=== PATIENT | male | born 1935 | race Caucasian/White ===

== ENCOUNTER → 2017-12-13 09:01 | Outpatient (CLI) | payer MEDICARE, OTHER ==
[~2017-12-13 09:01] MED LIST: ALDACTONE25 MG PO; CHRONULAC30 ML PO; COUMADIN2.5 MG PO; FUROSEMIDE40 MG PO; HYZAAR 100-25 T1 TAB PO; KLOR-CON M2020 MEQ PO; OMEPRAZOLE20 M1 PO; PROSCAR5 MG PO; ULTRAM50 MG PO; XIFAXAN550 MG PO; ZYLOPRIM300 MG PO
[2017-12-13 10:14] LABS: INR 2.01 (0.85-1.17); PROTIME 22.1 SECONDS (11.6-15.0)
[2017-12-13 10:23] LABS: ALBUMIN 2.5 g/dL (3.4-5.0); ANION GAP 13.7 mmol/L (8-16); BILIRUBIN - TOTAL 1.7 mg/dL (0.2-1.3); CALCIUM 9.2 mg/dL (8.5-10.1); CARBON DIOXIDE 26.3 mmol/L (21.0-32.0); CREATININE - SERUM 2.4 mg/dL (0.6-1.3); PROTEIN - SERUM 6.7 g/dL (6.4-8.2)
[2017-12-14 10:12] LABS: ALPHA FETOPROTEIN -(TUMOR MRK) 2.8 ng/mL (0.0-8.3)
[2017-12-14 12:12] LABS: HEPATITIS C ANTIBODY 0.5 (0.0-0.9)
[2018-01-08 13:55] VITALS: BMI 23.6
== END | disposition home or self-care (01) ==
LOC: D.US 09:01
PROVIDERS: Internal Medicine Gastroenterology
DX: K74.60 Unspecified cirrhosis of liver (principal)

== ENCOUNTER → 2017-12-17 11:27 | Outpatient (CLI) | payer MEDICARE, OTHER ==
[~2017-12-17] VITALS: Ht 175.3 cm; Wt 78.2 kg
--- NOTE | ~2017-12-17 | OP ---
PATIENT NAME: RANGEL NG MEDICAL RECORD: [id number] :36 LOCATION:D.CAT ADMISSION DATE: SURGEON: NOAH TEJADA MD DATE OF OPERATION: 12/17/2017 PROCEDURES: Left heart catheterization, selective coronary angiography, left femoral artery approach. CATHETERS: A 5-Pashto sheath, 5/4 left and right Stacy, 5/4 pig. The procedure was well tolerated. The patient returned to the breaux. Sheath removed. ExoSeal device placed. FINDINGS Left ventriculography in 30-degree GARNETT view shows global hypokinesis. Overall, LV function reduced, 30% to 35%. CORONARY ANATOMY: LEFT MAIN: Left main is free of disease. LAD: Smallish LAD, not quite reaching the apex. This has about 50% stenosis in the mid portion. There is a large diagonal. CIRCUMFLEX: Large circumflex, free of disease. RIGHT CORONARY ARTERY: Dominant artery, gives rise to PDA, free of disease. IMPRESSION: Nonischemic cardiomyopathy. We will start ARB at this point with Hyzaar 100/25 every day. If blood pressure tolerates, I would add carvedilol down the road. No complication of surgery from a cardiovascular standpoint. TRANSINT:[id number] Voice Confirmation ID: [id number] DOCUMENT ID: [id number] NOAH TEJADA MD at 1424 CC: [id number] DICTATION DATE: 12/17/17 140[address] MILK R[address]TE DELIVERER: 12/17/17 1424 DEP CLI 12/17/17 [address] [place] [address]
--- NOTE | ~2017-12-17 | HEMODYNAMI ---
PATIENT:RANGEL NG MEDICAL RECORD: [id number] : 37 LOCATION:DTUAN ADMISSION DATE: 12/17/17 Generatedon:12/17/201713:57 Patient name: RANGEL NG Patient #: [id number] SSN: DO B: 1935 Date of study: 12/17/2017 Page: Of Hemodynamic Procedure Report Patient Data Patient Demographics Procedure consent was obtained First Name: RANGEL Gender: Male Last Name: HERNANDEZ : 1935 [facility] Initial: CHARLES Age: 82 year(s) Patient #: [id number] Race: Unknown Additional ID: [id number] Contact details [address]: [address] [place] [address] ROAD State: [place] City: [place] Zip code: [address] Past Medical History Allergies: No known allergies Admission Admission Data Admission Date: 12/17/2017 Admission Time: 11:27 Lab Results Lab Result Date: 12/17/2017 Lab Result Time: 0:00 CBC Name Units Result Min Max Hemoglobin g/dl 10.3 *-(----)-- 13.5 17.5 Coagulation Name Units Result Min Max INR units 1.24 --(----)*- 0.85 1.17 Procedure Procedure Types Cath Procedure Diagnostic Procedure LHC LH w/Coronaries Procedure Description Procedure Date Procedure Date: 12/17/2017 Procedure Start Time: 13:44 Procedure End Time: 13:56 Procedure Staff Name Function Leon Miles MD Performing Physician Rafi Fernandez RT Monitor Anatoly Wilcox RN Nurse Amanda Rocha RT Scrub Procedure Data Cath Procedure Fluoroscopy Diagnostic fluoroscopy Total fluoroscopy Time: 1.5 time: 1.5 min min Diagnostic fluoroscopy Total fluoroscopy dose: dose: 341.02 mGy 341.02 mGy Contrast Material Contrast Material Type Amount (ml) Isovue 300 50 Entry Location Entry Primary Successful Side Size Upsize Upsize Entry Closure Succes sful Closure Location (Fr) 1 (Fr) 2 (Fr) Remarks Device Remarks Femoral Right 5 Fr Exoseal artery Estimated blood loss: 5 ml Diagnostic catheters Device Type Used For End Catheter Placement MULTIPACK JL 4.0 5Fr Procedure catheter MULTIPACK 3DRC 5Fr Procedure catheter MULTIPACK Pigtail 5 Fr Procedure catheter Procedure Complications No complications Procedure Medications Medication Administration Route Dosage 0.9% NaCl I.V. 100 ml/hr Oxygen etCO2 Nasal cannula 2 l/min Heparin Flush Bag added to field 2 bags (1000units/500ml NS) Lidocaine 2% added to field 20 Benadryl I.V. 50 mg Versed I.V. 1 mg Fentanyl I.V. 50 mcg Hemodynamics Rest HGB: 10.3 (g/dl) Heart Rate: 57 (bpm) Pressure Samples Time Site Value (mmHg) Purpose Heart Use Rate(bpm) 13:50 LV 130/-5,11 Snapshot 70 13:51 AO 116/56(82) Pullback 69 13:51 LV 115/10,15 Pullback 69 Gradients Valve Time Site 1 Site 2 Mean SEP/DFP Peak To Heart Use (mmHg) (sec/min) Peak Rate (mmHg) (bpm) Aortic 13:51 LV AO 0 8 0 69 115/10,15 116/56(82) Calculations Valve P-P Mean Valve Index Valve Source Name Gradient Area Flow (cm2) Aortic 0 0 0 0 Snapshots Pre Cath Intra NCS Post Cath Vital Signs Time Heart Resp SPO2 etCO2 NIBP (mmHg) Rhythm Pain Sedation Rate (ipm) (%) (mmHg) Status Level (bpm) 13:05:17 59 16 100 32.2 140/71(110) NSR 0 (11) 10(A) , No pain 13:09:56 62 25 100 32.2 128/72(105) NSR 0 (11) 10(A) , No pain 13:14:30 66 14 100 29.9 117/73(100) NSR 0 (11) 10(A) , No pain 13:19:05 67 13 100 24.7 108/62(87) NSR 0 (11) 10(A) , No pain 13:23:35 62 13 100 29.2 117/66(101) NSR 0 (11) 10(A) , No pain 13:28:08 70 24 100 29.9 115/72(93) NSR 0 (11) 10(A) , No pain 13:32:40 65 14 100 30.6 115/72(95) NSR 0 (11) 10(A) , No pain 13:37:13 59 17 100 30.6 118/66(90) NSR 0 (11) 10(A) , No pain 13:41:45 65 29 100 30.6 128/72(104) NSR 0 (11) 9(A) , No pain 13:46:20 64 13 100 30.6 127/71(102) NSR 0 (11) 9(A) , No pain 13:50:54 68 13 100 32.1 120/71(106) NSR 0 (11) 9(A) , No pain 13:55:28 65 12 100 31.4 121/72(101) NSR 0 (11) 9(A) , No pain Medications Time Medication Route Dose Verified Delivered Reason Notes Eff ectiveness by by 13:09:40 0.9% NaCl I.V. 100 Anatoly Anatoly Per ml/hr Brenden Wilcox physician RN RN 13:09:50 Oxygen etCO2 2 Anatoly Anatoly Per Nasal l/min Brenden Wilcox physician cannula RN RN 13:10:00 Heparin Flush added 2 Anatoly Anatoly used for Bag to bags Lorigan Brenden procedure (1000units/500ml field RN RN NS) 13:10:10 Lidocaine 2% added 20ml Anatoly Anatoly for local to vial Lorigan Lorigan anesthetic field RN RN 13:10:20 Benadryl I.V. 50 mg Anatoly Anatoly Per Brenden Wilcox physician RN RN 13:41:11 Versed I.V. 1 mg Anatoly Anatoly for Lorigan Lorigan sedation RN RN 13:41:20 Fentanyl I.V. 50 Anatoly Anatoly for mcg Lorigan Lorigan sedation RN asset protection manager Log Time Note 12:40:53 Anatoly Wilcox RN sent for patient. Start room use. 12:51:59 Time tracking: Regular hours (M-F 7:00 - 5:00) 12:52:04 Plan of Care:Hemodynamics will remain stable., Cardiac rhythm will remain stable., Comfort level will be maintained., Respiratory function will remain adequate., Patient/ family verbilizes understanding of procedure., Procedure tolerated without complication., Recovers from procedure without complications.. 12:52:06 Signed procedure consent form obtained from patient. 12:52:17 H&P Date Dictated: 12/10/2017 Within 30 days and on chart., H&P Addendum completed by physician on day of procedure. (MUST COMPLETE FOR ALL OUTPATIENTS). 12:52:26 Patient received from Pre/Post Procedure Room to CCL 1 Alert and oriented. Tansferred to table in Supine position. 12:52:27 Warm blankets applied, and eliza hugger turned on for patient comfort. 12:52:27 Correct patient and procedure confirmed by team. 12:52:28 ECG and BP/O2 sat monitors applied to patient. 12:53:38 Lab Result : Hemoglobin 10.3 g/dl 12:53:38 Lab Result : INR 1.24 units 12:53:48 Patient allergic to No known allergies 13:04:23 Vital chart was started 13:04:24 Baseline sample Acquired. 13:05:38 Rhythm: sinus rhythm 13:05:40 Full Disclosure recording started 13:05:41 Pre-procedure instructions explained to patient. 13:05:45 Family in waiting room. 13:05:47 Patient NPO since Midnight. 13:05:49 Is the patient allergic to Iodine/contrast media? No. 13:05:50 Is patient on blood thinner?Yes 13:05:52 Patient diabetic? No. 13:05:55 Previous problem with sedation/anesthesia? No ? 13:05:57 Snore? Yes 13:05:59 Sleep apnea? No 13:05:59 Deviated septum? Yes 13:06:00 Opens mouth fully? Yes 13:06:01 Sticks out tongue? Yes 13:06:02 Airway obstruction? No ? 13:06:07 Dentures? Yes in tight 13:06:12 Pre procedure: left dorsailis pedis pulse 1+ Palpable, but thready & weak; easily obliterated 13:06:14 Patient pain scale 0/10 ?. 13:06:26 IV patent on arrival in left antecubital with 0.9% NaCl at [facility]. 13:06:29 Lab results completed and on chart. 13:06:33 Left groin area was prepped with chlora-prep and draped in sterile fashion 13:06:35 Alarms reviewed by R. N. 13:06:35 Sharps counted by scrub and verified by R.N. 13:06:37 Use device set Femoral Dx 13:06:38 ACIST Syringe (56400) opened to sterile field. 13:06:39 Bag Decanter (2002S) opened to sterile field. 13:06:40 ACIST Hand Control (06961) opened to sterile field. 13:06:41 ACIST Manifold (24419) opened to sterile field. 13:06:42 Tegaderm 4 x 4 (1626W) opened to sterile field. 13:06:46 Medline Cath Pack ([id number]) opened to sterile field. 13:06:54 SHEATH Prelude 5Fr 0.035 (CCU-2A-03-035) opened to sterile field. 13:06:56 DIAGNOSTIC Multipack 5Fr catheter set ([id number]) opened to sterile field. 13:06:57 DIAGNOSTIC WIRE .035 260cm J wire (382031) opened to sterile field. 13:09:40 0.9% NaCl 100 ml/hr I.V. was administered by Anatoly Wilcox RN; Per physician; 13:09:50 Oxygen 2 l/min etCO2 Nasal cannula was administered by Anatoly Wilcox RN; Per physician; 13:10:00 Heparin Flush Bag (1000units/500ml NS) 2 bags added to field was administered by Anatoly Wilcox RN; used for procedure; 13:10:10 Lidocaine 2% 20ml vial added to field was administered by Anatoly Wilcox RN; for local anesthetic; 13:10:20 Benadryl 50 mg I.V. was administered by Anatoly Wilcox RN; Per physician; 13:15:53 Zero performed for pressure channel P1 13:40:39 Physician arrived 13:40:40 --------ALL STOP TIME OUT------ 13:40:40 Final Timeout: patient, procedure, and site verified with staff and physician. All members of the team are in agreement. 13:40:42 Right groin site verified by team. 13:40:44 Physical assessment completed. ASA score P 2 - A patient with mild systemic disease as per Leon Miles MD. 13:40:46 Sedation plan: IV Moderate Sedation Medication:Versed, Fentanyl 13:41:11 Versed 1 mg I.V. was administered by Anatoly Wilcox RN; for sedation; 13:41:20 Fentanyl 50 mcg I.V. was administered by Anatoly Wilcox RN; for sedation; 13:44:43 Procedure started. 13:44:46 Local anesthetic to right femoral artery with Lidocaine 2% by Leon Miles MD.INITIAL ACCESS ONLY 13:44:53 A 5 Fr sheath was inserted into the Right Femoral artery 13:45:51 A MULTIPACK JL 4.0 5Fr catheter was advanced over the wire and used for Procedure. 13:47:01 LCA angiography performed. 13:48:00 Catheter exchanged over wire. 13:48:43 A MULTIPACK 3DRC 5Fr catheter was advanced over the wire and used for Procedure. 13:49:17 RCA angiography performed. 13:49:18 Catheter exchanged over wire. 13:49:24 A MULTIPACK Pigtail 5 Fr catheter was advanced over the wire and used for Procedure. 13:50:27 LV gram done using GARNETT 13:50:29 Injector settings: Ml/sec: 10, Volume: 20, 13:50:31 LV hemodynamics recorded. 13:50:54 EF : 35 % 13:52:49 Catheter removed. 13:52:53 EXOSEAL 5Fr (EX500) opened to sterile field. 13:53:28 Sheath removed intact; hemostasis achieved with Exoseal to the Right Femoral artery. 13:53:30 Procedure ended.(Physican Out) 13:55:00 Fluoroscopy time 01.50 minutes. 13:55:07 Fluoroscopy dose: 341.02 mGy 13:55:07 Flurop Dose total: 341.02 13:55:28 Contrast amount:Isovue 300 50ml. 13:55:29 Sharps counted by scrub and verified by R.N. 13:55:34 Insertion/operative site no bleeding no hematoma. 13:55:37 Post-op/insertion site Left Femoral artery dressed using a 4 x 4 and Tegaderm. 13:55:41 Post left femerol artery:stable, soft, clean and dry 13:55:43 Post Procedure Pulses reassessed and unchanged 13:55:46 Post-procedure physical assessment completed. ASA score P 2 - A patient with mild systemic disease as per Leon Miles MD. 13:55:48 Post procedure rhythm: unchanged. 13:55:52 Estimated blood loss: 5 ml 13:55:53 Post procedure instruction explained to patient.Patient verbalizes understanding. 13:55:54 Patient needs reinforcement of post procedure teaching. 13:56:39 Procedure and supply charges have been captured, reviewed, submitted and are correct. 13:56:41 Procedure Complication : No complications 13:56:43 Vital chart was stopped 13:56:43 See physician's report for complete and final results. 13:56:45 Report given to Pre/Post Procedure Room. 13:56:48 Patient transfered to Pre/Post Procedure Room with Stretcher. 13:56:51 Procedure ended. 13:56:51 Full Disclosure recording stopped 13:56:54 End room use (Document Last) Device Usage Item Name Manufacture Quantity Catalog Number Hospital Part Current M inimal Lot# / Charge Number Stock Stock Serial# Code ACIST Syringe Acist 1 08360 [id number] 246765 870193 2 0 (93369) Medical Systems Snaapiq Bag Decanter Microtek 1 2001S 873586 81696 198530 5 (2001S) Medical Inc. ACIST Hand Acist 1 83826 271999 267088 712522 5 Control (54235) Medical Systems Snaapiq ACIST Manifold Acist 1 46959 444299 801231 903398 5 (27113) Medical Systems Snaapiq Tegaderm 4 x 4 3M 1 1626W 810092 355373 303507 5 (1626W) Medline Cath Cardinal 1 [id number] 713682 87543 733788 5 Pack Health ([id number]) SHEATH Prelude Merit 1 HAM-2O-62-035 334054 394189 681257 5 5Fr 0.035 Medical (KSD-7J-46-035) DIAGNOSTIC Cardinal 1 HW8699 135932 73026 183221 3 0 Multipack 5Fr Health catheter set (FU5710) DIAGNOSTIC WIRE [facility] 1 096904 459210 656737 752127 3 0 .035 260cm J wire (689002) MULTIPACK JL Cardinal 1 354677 5 4.0 5Fr Health catheter MULTIPACK 3DRC Cardinal 1 439401 5 5Fr catheter Health MULTIPACK Cardinal 1 049327 5 Pigtail 5 Fr Health catheter EXOSEAL 5Fr Cardinal 1 EX500 150300 097636 634338 1 0 (EX500) Health Signature Audit [place] Stage Time Signature Unsigned Intra-Procedure 12/17/2017 Rafi Fernandez 1:57:29 PM RT(R) Signatures Monitor : Rafi Fernandez RT Signature : Date : Time : [address] [place] [address]
[2017-12-17 12:02] VITALS: BP 152/72; Ht 175.3 cm; Wt 78.2 kg
[2017-12-17 12:11] LABS: BASOPHILS 0 % (0-2); EOSINOPHILS 0.9 % (0-7); HEMATOCRIT 30.8 % (42.0-54.0); HEMOGLOBIN 10.3 g/dL (13.5-17.5); IMMATURE GRANULOCYTES 0.3 % (0-5); LYMPHOCYTES 20.2 % (15-50); MCH 35.9 pg (26.0-34.0); MCHC 33.4 g/dL (31.0-37.0); MCV 107.3 fL (80.0-100.0); MEAN PLATELET VOLUME 12.4 fL (7.4-10.4); MONOCYTES 9.9 % (2-11); NEUTROPHILS 68.7 % (40-80); PLATELET COUNT 85 10x3/uL (130-400); RBC 2.87 10x6/uL (4.20-6.10); RDW 15.2 % (11.5-14.5); WBC 6.7 10x3/uL (4.8-10.8)
[2017-12-17 12:21] LABS: INR 1.24 (0.85-1.17); PROTIME 15.2 SECONDS (11.6-15.0)
[2017-12-17 12:38] LABS: PLATELET ESTIMATE DECREASED
[2017-12-17 12:51] LABS: ANION GAP 12.7 mmol/L (8-16); CALCIUM 8.4 mg/dL (8.5-10.1); CARBON DIOXIDE 27.2 mmol/L (21.0-32.0); CREATININE - SERUM 2.4 mg/dL (0.6-1.3); POTASSIUM - SERUM 3.9 mmol/L (3.5-5.1)
== END | disposition home or self-care (01) ==
LOC: D.CATH 11:27
PROVIDERS: Internal Medicine Interventional Cardiology
DX: I42.8 Other cardiomyopathies (principal); Z01.812 Encounter for preprocedural laboratory examination

== ENCOUNTER → 2017-12-24 08:08 | Outpatient (CLI) | payer MEDICARE, OTHER ==
[2017-12-17 12:02] VITALS: BMI 25.4
== END | disposition home or self-care (01) ==
LOC: D.MRI 08:08
DX: K74.60 Unspecified cirrhosis of liver (principal)

== ENCOUNTER 2017-12-28 12:38 | Inpatient (IN) | payer MEDICARE, OTHER ==
[~2017-12-28] VITALS: Ht 175.3 cm; Wt 44.1 kg
--- NOTE | ~2017-12-28 | EC ---
PATIENT:RANGEL NG DATE OF SERVICE: 12/28/17 SEX: M MEDICAL RECORD: [id number] DATE OF : 37 LOCATION:D.M2 D.213 AGE OF PATIENT: 82 ADMISSION DATE: 12/28/17 REFERRING PHYSICIAN: INTERPRETING PHYSICIAN: LUIS VALDEZ MD ECHOCARDIOGRAM REPORT ECHO CHARGES 4 ECHO COMPLETE Date: 12/29 CLINICAL DIAGNOSIS: SYNCOPE ECHOCARDIOGRAPHIC MEASUREMENTS (adult normal given) AC root (d.<3.7cm) 3.9 cm LV Septum d (<1.2 cm> 1.4 cm Valve Excursion 1.3 cm LV Septum (systole) 1.7 cm Left Atria (s.<4.0cm> 3.7 cm LVPW d(<1.2cm) 1.5 cm RV (d.<2.3cm) 3.9 cm LVPW (sytole) 2.0 cm LV diastole(<5.6CM) 4.7 cm MV E-F(>70mm/sec) cm LV systole 3.2 cm LVOT Diameter 1.5 cm MV exc.(>10mm) 1.7 cm Est.ejection fraction (50-75%) % DOPPLER: LVIT cm/sec A 93.0 cm/sec E 43.0 cm/sec LA cm/sec RVSP 34 mmHg LVOT 126 cm/sec AOP1/2T m/s Asc. Ao 193 cm/sec RVOT cm/sec RA cm/sec PA cm/sec AV Gradient Peak 14.91mmHg AV Mean 7.51 mmHg AV Area 1.2 cm MV Gradient Peak 4.74 mmHg MV Mean 1.57 mmHg MV Area cm COMMENTS: Ux Architect: 2 JOHNY ALEXANDER Manager Housekeeping: 4 Dr. Valdez TAPE# PACS Pericardial Effusion N DATE OF SERVICE: PROCEDURE: Transthoracic echocardiogram. FINDINGS: 1. Left ventricular function is low normal. There is a septal bounce and dyssynchronous wall motion or asynchronous wall motion due to underlying bundle-branch block, but the overall function is normal. Inflow characteristics consistent with diastolic dysfunction. The patient appears to have moderate left ventricular hypertrophy. ECHOCARDIOGRAM REPORT [id number] RANGEL NG 2. The left atrium has normal size, shape, and function. 3. The aortic valve is grossly normal with trace aortic insufficiency and mild sclerosis. 4. The mitral valve is normal. 5. Tricuspid valve is normal with an RVSP of 34 mmHg. 6. The right ventricle and right atrium are mildly dilated. 7. Pericardium is normal. CONCLUSIONS: The patient has evidence of mild aortic sclerosis without stenosis and dyssynchronous wall motion with left ventricular hypertrophy and diastolic dysfunction. TRANSINT:[id number] Voice Confirmation ID: [id number] DOCUMENT ID: [id number] LUIS VALDEZ MD at 1029 CC: [id number] DICTATION DATE: 01/02/18 0756 IDENTITY MANAGEMENT DEVELOPER: 01/02/18 0930 DIS IN 01/03/18 [facility] [address] [place] [address]
[~2017-12-28 12:38] MED LIST changes: -ALDACTONE25 MG PO; -CHRONULAC30 ML PO
[2017-12-28 15:31] VITALS: BP 122/60; BMI 24.4
[2017-12-28 17:02] VITALS: BP 117/73
[2017-12-28 20:50] VITALS: BP 118/72
[2017-12-29] VITALS (7 sets, daily range): BP systolic 93–133; BP diastolic 66–77
[2017-12-29 11:05] LABS: HEMOGLOBIN 11.9 g/dL (13.5-17.5); MCH 36.1 pg (26.0-34.0); MCV 106.1 fL (80.0-100.0); MEAN PLATELET VOLUME 12.1 fL (7.4-10.4); RDW 14.8 % (11.5-14.5)
[2017-12-29 11:24] LABS: ALBUMIN 2.4 g/dL (3.4-5.0); ANION GAP 11.5 mmol/L (8-16); BILIRUBIN - TOTAL 1.95 mg/dL (0.2-1.3); CALCIUM 8.7 mg/dL (8.5-10.1); CARBON DIOXIDE 28.4 mmol/L (21.0-32.0); CREATININE - SERUM 3.4 mg/dL (0.6-1.3); MAGNESIUM - SERUM 1.9 mg/dL (1.8-2.4); POTASSIUM - SERUM 3.9 mmol/L (3.5-5.1); PROTEIN - SERUM 6.3 g/dL (6.4-8.2)
[2017-12-29 11:26] LABS: PLATELET COUNT 61 10x3/uL (130-400)
[2017-12-29 11:29] LABS: APTT 35.3 SECONDS (22.8-39.4); INR 1.84 (0.85-1.17); PROTIME 20.7 SECONDS (11.6-15.0)
[2017-12-29 14:04] LABS: CKMB 1.9 U/L (0.0-3.6); CREATINE KINASE 129 UL (21-232)
[2017-12-29 14:07] LABS: TROPONIN-I 0.084 ng/mL (0.000-0.060)
[2017-12-29 18:43] LABS: CREATINE KINASE 137 UL (21-232)
[2017-12-29 18:51] LABS: TROPONIN-I 0.075 ng/mL (0.000-0.060)
[2017-12-30 00:38] LABS: CKMB 1.8 U/L (0.0-3.6); CREATINE KINASE 115 UL (21-232)
[2017-12-30 00:40] LABS: TROPONIN-I 0.068 ng/mL (0.000-0.060)
[2017-12-30 02:28] VITALS: BP 115/76
[2017-12-30 05:22] VITALS: BP 115/73
[2017-12-30 07:15] LABS: BASOPHILS 0.2 % (0-2); EOSINOPHILS 2.2 % (0-7); HEMATOCRIT 32.1 % (42.0-54.0); HEMOGLOBIN 10.8 g/dL (13.5-17.5); IMMATURE GRANULOCYTES 0.2 % (0-5); MCH 35.4 pg (26.0-34.0); MCHC 33.6 g/dL (31.0-37.0); MCV 105.2 fL (80.0-100.0); MEAN PLATELET VOLUME 12.6 fL (7.4-10.4); MONOCYTES 8.7 % (2-11); NEUTROPHILS 67.7 % (40-80); PLATELET COUNT 53 10x3/uL (130-400); RBC 3.05 10x6/uL (4.20-6.10); RDW 14.5 % (11.5-14.5); WBC 5.4 10x3/uL (4.8-10.8)
[2017-12-30 07:18] LABS: INR 2.02 (0.85-1.17); PROTIME 22.2 SECONDS (11.6-15.0)
[2017-12-30 07:32] LABS: ALBUMIN 2.1 g/dL (3.4-5.0); ANION GAP 12.7 mmol/L (8-16); BILIRUBIN - TOTAL 2.09 mg/dL (0.2-1.3); CALCIUM 8.5 mg/dL (8.5-10.1); POTASSIUM - SERUM 3.7 mmol/L (3.5-5.1); PROTEIN - SERUM 5.6 g/dL (6.4-8.2)
[2017-12-30 08:20] VITALS: BP 119/69
[2017-12-30 11:24] VITALS: BP 105/71
[2017-12-30 13:57] VITALS: Ht 175.3 cm; Wt 44.1 kg
[2017-12-30 16:10] VITALS: BP 123/64
[2017-12-30 20:24] VITALS: BP 95/63
[2017-12-31] VITALS (7 sets, daily range): BP systolic 92–150; BP diastolic 54–74
[2017-12-31 06:54] LABS: BASOPHILS 0.1 % (0-2); EOSINOPHILS 1.2 % (0-7); HEMATOCRIT 37.4 % (42.0-54.0); HEMOGLOBIN 12.8 g/dL (13.5-17.5); IMMATURE GRANULOCYTES 0.2 % (0-5); LYMPHOCYTES 22.3 % (15-50); MCH 36.3 pg (26.0-34.0); MCHC 34.2 g/dL (31.0-37.0); MCV 105.9 fL (80.0-100.0); MEAN PLATELET VOLUME 12.8 fL (7.4-10.4); MONOCYTES 8.1 % (2-11); NEUTROPHILS 68.1 % (40-80); RBC 3.53 10x6/uL (4.20-6.10); RDW 14.7 % (11.5-14.5)
[2017-12-31 07:13] LABS: INR 1.73 (0.85-1.17); PROTIME 19.7 SECONDS (11.6-15.0)
[2017-12-31 07:15] LABS: ALBUMIN 2.5 g/dL (3.4-5.0); ANION GAP 17.9 mmol/L (8-16); BILIRUBIN - TOTAL 2.4 mg/dL (0.2-1.3); CALCIUM 8.6 mg/dL (8.5-10.1); CARBON DIOXIDE 26.8 mmol/L (21.0-32.0); CREATININE - SERUM 3.3 mg/dL (0.6-1.3); POTASSIUM - SERUM 3.7 mmol/L (3.5-5.1); PROTEIN - SERUM 6.1 g/dL (6.4-8.2)
[2017-12-31 07:43] LABS: PLATELET COUNT 65 10x3/uL (130-400); WBC 9.2 10x3/uL (4.8-10.8)
[2017-12-31 15:49] LABS: APPEARANCE CLEAR (CLEAR); BILIRUBIN NEGATIVE (NEGATIVE); COLOR YELLOW (YELLOW); GLUCOSE NEGATIVE (NEGATIVE); KETONE NEGATIVE (NEGATIVE); NITRITE NEGATIVE (NEGATIVE); PROTEIN NEGATIVE (NEGATIVE); SPECIFIC GRAVITY 1.015 (1.005-1.020); UROBILINOGEN NORMAL (NORMAL)
[2017-12-31 15:50] LABS: BACTERIA MANY /hpf (NONE SEEN); RED CELLS - URINE 0-5 /hpf (0-5)
[2018-01-01] VITALS: BP 91/64
[2018-01-01 06:13] LABS: BASOPHILS 0.1 % (0-2); EOSINOPHILS 1.8 % (0-7); HEMATOCRIT 36.9 % (42.0-54.0); HEMOGLOBIN 12.7 g/dL (13.5-17.5); IMMATURE GRANULOCYTES 0.2 % (0-5); LYMPHOCYTES 23.6 % (15-50); MCH 36.1 pg (26.0-34.0); MCHC 34.4 g/dL (31.0-37.0); MCV 104.8 fL (80.0-100.0); MEAN PLATELET VOLUME 12.7 fL (7.4-10.4); MONOCYTES 8.1 % (2-11); NEUTROPHILS 66.2 % (40-80); PLATELET COUNT 74 10x3/uL (130-400); RBC 3.52 10x6/uL (4.20-6.10); RDW 14.6 % (11.5-14.5); WBC 8.9 10x3/uL (4.8-10.8)
[2018-01-01 06:25] LABS: INR 1.53 (0.85-1.17); PROTIME 17.9 SECONDS (11.6-15.0)
[2018-01-01 06:41] LABS: ALBUMIN 2.5 g/dL (3.4-5.0); ANION GAP 15.5 mmol/L (8-16); BILIRUBIN - TOTAL 2.48 mg/dL (0.2-1.3); CALCIUM 8.7 mg/dL (8.5-10.1); CARBON DIOXIDE 25.8 mmol/L (21.0-32.0); POTASSIUM - SERUM 3.3 mmol/L (3.5-5.1); PROTEIN - SERUM 6.5 g/dL (6.4-8.2)
[2018-01-01 08:22] VITALS: BP 108/68
[2018-01-01 12:09] VITALS: BP 100/65
[2018-01-01 16:16] VITALS: BP 101/82
[2018-01-01 22:01] VITALS: BP 106/71
[2018-01-02 01:03] VITALS: BP 123/74
[2018-01-02 06:37] LABS: BASOPHILS 0 % (0-2); EOSINOPHILS 2.2 % (0-7); HEMATOCRIT 34.4 % (42.0-54.0); HEMOGLOBIN 11.7 g/dL (13.5-17.5); IMMATURE GRANULOCYTES 0.3 % (0-5); LYMPHOCYTES 20.1 % (15-50); MCH 35.6 pg (26.0-34.0); MCV 104.6 fL (80.0-100.0); MEAN PLATELET VOLUME 11.7 fL (7.4-10.4); MONOCYTES 8.9 % (2-11); NEUTROPHILS 68.5 % (40-80); PLATELET COUNT 60 10x3/uL (130-400); RBC 3.29 10x6/uL (4.20-6.10); RDW 14.5 % (11.5-14.5)
[2018-01-02 06:40] LABS: WBC 5.9 10x3/uL (4.8-10.8)
[2018-01-02 06:54] LABS: INR 1.77 (0.85-1.17); PROTIME 20.1 SECONDS (11.6-15.0)
[2018-01-02 07:00] VITALS: BP 125/78
[2018-01-02 07:17] LABS: ALBUMIN 2.1 g/dL (3.4-5.0); ANION GAP 15.7 mmol/L (8-16); BILIRUBIN - TOTAL 1.49 mg/dL (0.2-1.3); CALCIUM 8.5 mg/dL (8.5-10.1); CARBON DIOXIDE 25.9 mmol/L (21.0-32.0); CREATININE - SERUM 2.9 mg/dL (0.6-1.3); POTASSIUM - SERUM 3.6 mmol/L (3.5-5.1); PROTEIN - SERUM 5.3 g/dL (6.4-8.2)
[2018-01-02 13:03] VITALS: BP 103/70
[2018-01-02 16:39] VITALS: BP 122/68
[2018-01-02 20:00] VITALS: BP 107/71
[2018-01-03] VITALS: BP 155/68
[2018-01-03 04:00] VITALS: BP 132/75
[2018-01-03 05:10] LABS: INR 1.84 (0.85-1.17); PROTIME 20.7 SECONDS (11.6-15.0)
[2018-01-03 05:27] LABS: ALBUMIN 2.2 g/dL (3.4-5.0); BILIRUBIN - TOTAL 1.4 mg/dL (0.2-1.3); CALCIUM 8.6 mg/dL (8.5-10.1); CARBON DIOXIDE 25.8 mmol/L (21.0-32.0); CREATININE - SERUM 2.6 mg/dL (0.6-1.3); POTASSIUM - SERUM 3.8 mmol/L (3.5-5.1); PROTEIN - SERUM 5.7 g/dL (6.4-8.2)
[2018-01-03 05:38] LABS: BASOPHILS 0.1 % (0-2); EOSINOPHILS 1.8 % (0-7); HEMATOCRIT 34.3 % (42.0-54.0); HEMOGLOBIN 11.6 g/dL (13.5-17.5); IMMATURE GRANULOCYTES 0.4 % (0-5); LYMPHOCYTES 22.5 % (15-50); MCH 35.2 pg (26.0-34.0); MCHC 33.8 g/dL (31.0-37.0); MCV 103.9 fL (80.0-100.0); MEAN PLATELET VOLUME 11.6 fL (7.4-10.4); MONOCYTES 9.2 % (2-11); PLATELET COUNT 64 10x3/uL (130-400); RDW 14.3 % (11.5-14.5); WBC 7.3 10x3/uL (4.8-10.8)
[2018-01-03 09:01] VITALS: BP 121/70
[2018-01-03 12:17] VITALS: BP 113/72
[2018-01-03] MEDS ORDERED: ALDACTONE25 MG PO (12:43)
[2018-01-03] MEDS ORDERED: CHRONULAC30 ML PO (12:44)
[2018-01-03 15:17] VITALS: BP 112/83
== END 2018-01-03 16:58 | disposition home or self-care (01) | DRG 314 ==
LOC: D.M2 12:38
PROVIDERS: Internal Medicine Cardiovascular Disease; Internal Medicine Nephrology
DX: I95.9 Hypotension, unspecified (principal); I50.33 Acute on chronic diastolic (congestive) heart failure; N17.9 Acute kidney failure, unspecified; E86.9 Volume depletion, unspecified; K74.60 Unspecified cirrhosis of liver; I12.9 Hypertensive chronic kidney disease with stage 1 through stage 4 chronic kidney disease, or unspecified chronic kidney disease; N18.9 Chronic kidney disease, unspecified; D64.9 Anemia, unspecified; D69.6 Thrombocytopenia, unspecified; Z85.72 Personal history of non-Hodgkin lymphomas; K72.90 Hepatic failure, unspecified without coma; E86.1 Hypovolemia

== ENCOUNTER 2018-01-07 08:29 | Inpatient (IN) | payer MEDICARE, OTHER ==
[~2018-01-07] VITALS: Ht 175.3 cm; Wt 72.6 kg
[2018-01-07] VITALS (10 sets, daily range): BP systolic 109–132; BP diastolic 63–79; BMI 23.6
[~2018-01-07 08:29] MED LIST changes: +ALDACTONE25 MG PO; +CHRONULAC30 ML PO
[2018-01-07 09:22] LABS: BASOPHILS 0.3 % (0-2); EOSINOPHILS 1.3 % (0-7); HEMATOCRIT 34.5 % (42.0-54.0); HEMOGLOBIN 11.9 g/dL (13.5-17.5); IMMATURE GRANULOCYTES 0.9 % (0-5); LYMPHOCYTES 23.9 % (15-50); MCH 36.2 pg (26.0-34.0); MCHC 34.5 g/dL (31.0-37.0); MCV 104.9 fL (80.0-100.0); MEAN PLATELET VOLUME 12.1 fL (7.4-10.4); MONOCYTES 11.2 % (2-11); NEUTROPHILS 62.4 % (40-80); PLATELET COUNT 64 10x3/uL (130-400); RBC 3.29 10x6/uL (4.20-6.10)
[2018-01-07 09:38] LABS: ALBUMIN 2.2 g/dL (3.4-5.0); ANION GAP 13.6 mmol/L (8-16); BILIRUBIN - DIRECT 0.54 mg/dL (0.00-0.30); BILIRUBIN - INDIRECT 0.74 mg/dL (0.00-1.00); BILIRUBIN - TOTAL 1.28 mg/dL (0.2-1.3); CALCIUM 8.7 mg/dL (8.5-10.1); CARBON DIOXIDE 25.1 mmol/L (21.0-32.0); CREATININE - SERUM 3.1 mg/dL (0.6-1.3); POTASSIUM - SERUM 4.7 mmol/L (3.5-5.1); PROTEIN - SERUM 5.8 g/dL (6.4-8.2)
[2018-01-07 10:30] LABS: APPEARANCE HAZY (CLEAR); BACTERIA FEW /hpf (NONE SEEN); BILIRUBIN NEGATIVE (NEGATIVE); COLOR YELLOW (YELLOW); EPITHELIAL CELLS 0-5 /hpf (0-5); GLUCOSE NEGATIVE (NEGATIVE); KETONE NEGATIVE (NEGATIVE); NITRITE NEGATIVE (NEGATIVE); PROTEIN NEGATIVE (NEGATIVE); RED CELLS - URINE 0-5 /hpf (0-5); UROBILINOGEN NORMAL (NORMAL)
[2018-01-07 15:00] LABS: INR 3.51 (0.85-1.17); PROTIME 34.4 SECONDS (11.6-15.0)
[2018-01-08] VITALS (7 sets, daily range): BP systolic 104–130; BP diastolic 61–81; Ht 175.3 cm; Wt 72.6 kg
[2018-01-08 05:38] LABS: BASOPHILS 0.2 % (0-2); EOSINOPHILS 1.8 % (0-7); HEMATOCRIT 35.8 % (42.0-54.0); HEMOGLOBIN 11.9 g/dL (13.5-17.5); IMMATURE GRANULOCYTES 0.5 % (0-5); MCH 35.1 pg (26.0-34.0); MCHC 33.2 g/dL (31.0-37.0); MCV 105.6 fL (80.0-100.0); MONOCYTES 8.1 % (2-11); NEUTROPHILS 69.4 % (40-80); PLATELET COUNT 58 10x3/uL (130-400); RBC 3.39 10x6/uL (4.20-6.10); RDW 15.4 % (11.5-14.5); WBC 6.2 10x3/uL (4.8-10.8)
[2018-01-08 05:57] LABS: INR 3.79 (0.85-1.17); PROTIME 36.5 SECONDS (11.6-15.0)
[2018-01-08 06:06] LABS: ALBUMIN 2.2 g/dL (3.4-5.0); ANION GAP 16.7 mmol/L (8-16); BILIRUBIN - TOTAL 1.4 mg/dL (0.2-1.3); CALCIUM 8.5 mg/dL (8.5-10.1); CARBON DIOXIDE 20.5 mmol/L (21.0-32.0); CREATININE - SERUM 2.9 mg/dL (0.6-1.3); POTASSIUM - SERUM 4.2 mmol/L (3.5-5.1); PROTEIN - SERUM 5.6 g/dL (6.4-8.2)
[2018-01-09 04:23] VITALS: BP 121/71
[2018-01-09 07:33] LABS: CALCIUM 8.5 mg/dL (8.5-10.1); POTASSIUM - SERUM 3.8 mmol/L (3.5-5.1)
[2018-01-09 07:46] LABS: ANION GAP 17.8 mmol/L (8-16)
[2018-01-09 08:20] VITALS: BP 132/78
[2018-01-09 11:40] VITALS: BP 120/66
[2018-01-09 15:52] VITALS: BP 113/70
[2018-01-09 21:20] VITALS: BP 139/59
[2018-01-10 00:38] VITALS: BP 111/75
[2018-01-10 05:04] VITALS: BP 148/43
[2018-01-10 05:24] LABS: ANION GAP 16.4 mmol/L (8-16); CALCIUM 8.2 mg/dL (8.5-10.1); CARBON DIOXIDE 16.5 mmol/L (21.0-32.0); CREATININE - SERUM 2.7 mg/dL (0.6-1.3); POTASSIUM - SERUM 3.9 mmol/L (3.5-5.1)
[2018-01-10 05:33] LABS: INR 5.59 (0.85-1.17); PROTIME 49.6 SECONDS (11.6-15.0)
[2018-01-10 08:43] VITALS: BP 112/69
[2018-01-10 13:00] VITALS: BP 109/74
[2018-01-10 16:08] VITALS: BP 117/98
[2018-01-10 20:00] VITALS: BP 108/39; BP 128/73
[2018-01-11] VITALS: BP 92/52
[2018-01-11 04:00] VITALS: BP 100/56
[2018-01-11 06:41] LABS: ANION GAP 31.8 mmol/L (8-16); CALCIUM 7.6 mg/dL (8.5-10.1); CARBON DIOXIDE 13.3 mmol/L (21.0-32.0); CREATININE - SERUM 2.6 mg/dL (0.6-1.3); POTASSIUM - SERUM 4.1 mmol/L (3.5-5.1)
[2018-01-11 07:01] LABS: INR 1.67 (0.85-1.17); PROTIME 19.1 SECONDS (11.6-15.0)
[2018-01-11] MEDS ORDERED: XIFAXAN550 MG PO (12:01)
[2018-01-11] MEDS ORDERED: LASIX20 MG PO (12:04)
[2018-01-11] MEDS ORDERED: COUMADIN2.5 MG PO (12:21)
== END 2018-01-11 16:20 | DRG 442 ==
LOC: D.ER 08:29 → D.EDHOLD 10:43 → D.MS 10:43
PROVIDERS: Family Medicine; Internal Medicine Gastroenterology; Internal Medicine Nephrology
DX: K72.90 Hepatic failure, unspecified without coma (principal); N17.9 Acute kidney failure, unspecified; E87.0 Hyperosmolality and hypernatremia; R18.8 Other ascites; K74.60 Unspecified cirrhosis of liver; K75.81 Nonalcoholic steatohepatitis (NASH); E86.0 Dehydration; D53.9 Nutritional anemia, unspecified; D69.6 Thrombocytopenia, unspecified; Z85.72 Personal history of non-Hodgkin lymphomas; N28.1 Cyst of kidney, acquired

== ENCOUNTER 2018-01-11 16:09 | Inpatient (IN) | payer MEDICARE, OTHER ==
[~2018-01-11] VITALS: Ht 175.3 cm; Wt 73.7 kg
--- NOTE | ~2018-01-11 | RHP ---
PATIENT: RANGEL NG MEDICAL RECORD: [id number] ACCOUNT: [id number] LOCATION[facility] : 37 ADMISSION DATE: 01/11/18 REHABILITATION HISTORY AND PHYSICAL EXAMINATION POST ADMISSION PHYSICIAN EXAMINATION ADMITTING DIAGNOSIS: Hepatic encephalopathy HISTORY OF PRESENT ILLNESS: The patient is an 82-year-old gentleman admitted with hepatic encephalopathy. He has for history of hypertension, cirrhosis secondary to nonalcoholic steatohepatitis and lymphoma recently hospitalized for a syncopal episode and discharged home. He was in the ER with increasing confusion. He developed symptoms of nausea and vomiting followed by decreased level of consciousness. His ammonia level was 191, BUN and creatinine of 70 and 3.1. His caregiver states that he had been administering lactulose 30 cc t.i.d. and Cefixime 550 mg b.i.d. MRI of the abdomen showed chronic morphology of the liver and [id number] ascites. GI was consulted. After aggressive treatment with lactulose 90 cc t.i.d., his ammonia level was down to 25. He is much more alert and oriented. His lactulose now is 60 cc t.i.d. His INR is elevated throughout his stay. He has been on Coumadin, but this has been placed on hold. His INR was 5.59 on the date of discharge. He has been placed on vitamin K 10 mg IV times 1. Currently, renal functions are starting to improve. His sodium is up to 147 with continued hydration, was supposed to continue lactulose per GI recommendations. He has had bowel incontinence due to continuous diarrhea due to his lactulose. He remains weak and fatigued. He walked 130 feet with PT at 40% assist. He has poor balance and unsteadiness when he walks. Previously, he was moderately independent with ADLs and mobility using a single point cane and rolling walker. He lives at home with his . He has good family support. He and his family would like him to return home at his prior level of functioning or better. COMORBIDITIES: Include hepatic encephalopathy, chronic psoriasis, acute kidney injury, microcytic anemia, thrombocytopenia, hypertension, hyperbilirubinemia, history of lymphoma, abdominal fatigue, ascites and weakness. PAST MEDICAL HISTORY: Significant for cirrhosis, hypertension, edema, lymphoma and hernia. PAST SURGICAL HISTORY: Includes gallbladder surgery, tonsillectomy, adenoidectomy, bilateral total knee, left shoulder replacement and right-sided tonsillectomy. ALLERGIES: No known drug allergies. CURRENT MEDICATIONS: Include Voltaren gel topically. He is on warfarin 2.5 mg daily, spironolactone 25 mg daily, Protonix 40 mg daily, furosemide 20 mg daily, finasteride 5 mg daily, allopurinol 300 mg daily, Calmoseptine b.i.d., tramadol 50 mg every 6 hours p.r.n., Xifaxan 550 b.i.d. and lactulose 30 cc t.i.d. HABITS: No current alcohol or tobacco use. FAMILY HISTORY: Noncontributory. SOCIAL HISTORY: As above. He hopes to return back home and get back to his prior level of functioning. HISTORY AND PHYSICAL [id number] RANGEL NG REVIEW OF SYSTEMS: GENERAL: Does complain of weakness. HEENT: He denies cold, cough, or congestion. CARDIOVASCULAR: He denies chest pain. PHYSICAL EXAMINATION: VITAL SIGNS: Stable, afebrile. Generally a very cachectic, thin gentleman in no acute distress, alert upon exam. HEENT: Normocephalic and atraumatic. Mucosa moist. NECK: Supple. No lymphadenopathy. LUNGS: Clear at this time. HEART: Regular rate and rhythm. ABDOMEN: Soft. He does have some noted ascites. EXTREMITIES: Does have a little bit of peripheral edema. NEUROLOGIC: He seems intact, although he is somewhat weak. LABORATORY DATA: His ammonia level is 26. White cell count of 7.9, H&H of 12 and 35, and platelet count was noted to be 57. His sodium is 144, potassium 4.7, BUN and creatinine of 64 and 2.9, blood sugar is noted to be 189. ASSESSMENT: This is an 82-year-old gentleman admitted to the rehab with a working diagnosis of hepatic encephalopathy. The patient has potential to make improvement. We instituted the following multidisciplinary therapies including to, but not limited to physical, occupational, respiratory, speech, nutritional services, prosthetics and orthotics. Given his complex medical condition and risks for more complications, rehabilitation services cannot be provided at a low level of care such as a prison facility. PLAN: 1. Admit to [facility] rehab for intensive therapy to include the following disciplines: A. Physical therapy to improve gait, all transfer skills and bed mobility to a modified independent level. B. Occupational therapy to normal level. C. Case management to assist with discharge planning and placement options. D. Nutrition to assist with nutritional needs. E. Rehabilitation nursing to assist in monitoring the patient's underlying medical conditions and to assist with any type of bowel or bladder management. 2. The patient's current medication and medical care will be continued. 3. Will be placed on standard fall precautions. 4. The patient's stay is approximately 7-10 days. 5. We will watch his sodium level closely on his current medications, also his ammonia level. We also monitor his INR, which is subtherapeutic at this time and I will see him again in the a.m. TRANSINT:[id number] Voice Confirmation ID: [id number] DOCUMENT ID: [id number] VIVEK notes whether there has been none or any medical/functional change since admission: - No change since preadmission screen. VIVEK attests patient continues to be appropriate for IRF: HISTORY AND PHYSICAL [id number] RANGEL NG - Continues to be appropriate. AWILDA INGRAM MD at 1438 CC: [id number] DICTATION DATE: 01/12/18 1637 SERVOMECHANISM ASSEMBLER: 01/12/18 1715 ADM IN [address] [place] [address]
[~2018-01-11 16:09] MED LIST changes: +LASIX20 MG PO
[2018-01-11 16:28] VITALS: BP 123/74; BMI 14.9
[2018-01-11 20:32] VITALS: BP 104/62
[2018-01-12 11:44] LABS: BASOPHILS 0 % (0-2); HEMATOCRIT 35.5 % (42.0-54.0); HEMOGLOBIN 12.1 g/dL (13.5-17.5); IMMATURE GRANULOCYTES 0.4 % (0-5); LYMPHOCYTES 5.9 % (15-50); MCH 35.9 pg (26.0-34.0); MCHC 34.1 g/dL (31.0-37.0); MCV 105.3 fL (80.0-100.0); MEAN PLATELET VOLUME 12.9 fL (7.4-10.4); MONOCYTES 1.4 % (2-11); NEUTROPHILS 91.3 % (40-80); PLATELET COUNT 57 10x3/uL (130-400); RBC 3.37 10x6/uL (4.20-6.10); RDW 15.7 % (11.5-14.5); WBC 7.9 10x3/uL (4.8-10.8)
[2018-01-12 11:54] LABS: ANION GAP 16.4 mmol/L (8-16); CALCIUM 8.7 mg/dL (8.5-10.1); CARBON DIOXIDE 17.3 mmol/L (21.0-32.0); CREATININE - SERUM 2.9 mg/dL (0.6-1.3); POTASSIUM - SERUM 4.7 mmol/L (3.5-5.1)
[2018-01-12 20:20] VITALS: BP 100/55
[2018-01-13 05:38] LABS: APPEARANCE CLOUDY (CLEAR); BILIRUBIN NEGATIVE (NEGATIVE); COLOR YELLOW (YELLOW); GLUCOSE NEGATIVE (NEGATIVE); KETONE NEGATIVE (NEGATIVE); NITRITE NEGATIVE (NEGATIVE); PROTEIN 1+ mg/dL (NEGATIVE); SPECIFIC GRAVITY 1.015 (1.005-1.020); UROBILINOGEN NORMAL (NORMAL)
[2018-01-13 05:39] LABS: BACTERIA FEW /hpf (NONE SEEN); HYALINE CAST 0-5 /lpf (NONE SEEN); MUCUS <1+ /lpf (NONE SEEN); YEAST <1+ /hpf (NONE SEEN)
[2018-01-13 05:55] LABS: ANION GAP 17.6 mmol/L (8-16); CALCIUM 7.9 mg/dL (8.5-10.1); CARBON DIOXIDE 14.2 mmol/L (21.0-32.0); CREATININE - SERUM 3.2 mg/dL (0.6-1.3); POTASSIUM - SERUM 4.8 mmol/L (3.5-5.1)
[2018-01-13 05:57] LABS: INR 1.39 (0.85-1.17); PROTIME 16.6 SECONDS (11.6-15.0)
[2018-01-13 06:21] LABS: BASOPHILS 0.3 % (0-2); EOSINOPHILS 0.6 % (0-7); HEMATOCRIT 29.1 % (42.0-54.0); HEMOGLOBIN 9.7 g/dL (13.5-17.5); IMMATURE GRANULOCYTES 0.3 % (0-5); LYMPHOCYTES 11.2 % (15-50); MCH 35.5 pg (26.0-34.0); MCHC 33.3 g/dL (31.0-37.0); MCV 106.6 fL (80.0-100.0); NEUTROPHILS 78.6 % (40-80); RBC 2.73 10x6/uL (4.20-6.10); RDW 15.8 % (11.5-14.5); WBC 9.5 10x3/uL (4.8-10.8)
[2018-01-13 06:22] VITALS: BP 100/55
[2018-01-13 06:30] LABS: PLATELET COUNT 42 10x3/uL (130-400)
[2018-01-13 06:53] LABS: PLATELET ESTIMATE DECREASED
[2018-01-13 08:34] VITALS: BP 101/57
[2018-01-13 14:08] VITALS: Ht 175.3 cm; Wt 73.7 kg
[2018-01-13 19:00] VITALS: BP 106/55
[2018-01-14 06:30] LABS: BASOPHILS 0.1 % (0-2); EOSINOPHILS 1.1 % (0-7); HEMATOCRIT 30.7 % (42.0-54.0); HEMOGLOBIN 10.3 g/dL (13.5-17.5); IMMATURE GRANULOCYTES 0.4 % (0-5); LYMPHOCYTES 8.5 % (15-50); MCH 34.9 pg (26.0-34.0); MCHC 33.6 g/dL (31.0-37.0); MEAN PLATELET VOLUME 12.1 fL (7.4-10.4); MONOCYTES 10.3 % (2-11); NEUTROPHILS 79.6 % (40-80); RBC 2.95 10x6/uL (4.20-6.10); RDW 15.6 % (11.5-14.5); WBC 9.3 10x3/uL (4.8-10.8)
[2018-01-14 06:38] LABS: MCV 104.1 fL (80.0-100.0)
[2018-01-14 06:39] LABS: PLATELET COUNT 46 10x3/uL (130-400)
[2018-01-14 06:52] LABS: ANION GAP 19.3 mmol/L (8-16); CALCIUM 8.2 mg/dL (8.5-10.1); CARBON DIOXIDE 15.7 mmol/L (21.0-32.0); CREATININE - SERUM 3.5 mg/dL (0.6-1.3)
[2018-01-14 08:00] VITALS: BP 112/58
[2018-01-14 08:42] VITALS: BP 95/57
[2018-01-14 19:00] VITALS: BP 112/61
[2018-01-15 06:38] LABS: INR 1.93 (0.85-1.17); PROTIME 21.5 SECONDS (11.6-15.0)
[2018-01-15 08:00] VITALS: BP 91/61
[2018-01-15 19:00] VITALS: BP 96/47
[2018-01-16 05:48] LABS: INR 2.47 (0.85-1.17); PROTIME 26.1 SECONDS (11.6-15.0)
[2018-01-16 05:49] LABS: ANION GAP 16.7 mmol/L (8-16); CALCIUM 8.4 mg/dL (8.5-10.1); CARBON DIOXIDE 16.4 mmol/L (21.0-32.0); CREATININE - SERUM 3.8 mg/dL (0.6-1.3)
[2018-01-16 05:59] LABS: POTASSIUM - SERUM 6.1 mmol/L (3.5-5.1)
[2018-01-16 08:00] VITALS: BP 102/64
[2018-01-16 19:00] VITALS: BP 107/62
[2018-01-17 06:22] LABS: BASOPHILS 0.1 % (0-2); EOSINOPHILS 0.9 % (0-7); HEMOGLOBIN 10.6 g/dL (13.5-17.5); IMMATURE GRANULOCYTES 1.6 % (0-5); LYMPHOCYTES 11.2 % (15-50); MCH 34.9 pg (26.0-34.0); MCHC 34.2 g/dL (31.0-37.0); MEAN PLATELET VOLUME 12.6 fL (7.4-10.4); MONOCYTES 7.5 % (2-11); NEUTROPHILS 78.7 % (40-80); RBC 3.04 10x6/uL (4.20-6.10); RDW 15.8 % (11.5-14.5); WBC 8.9 10x3/uL (4.8-10.8)
[2018-01-17 06:26] LABS: INR 2.91 (0.85-1.17); PROTIME 29.7 SECONDS (11.6-15.0)
[2018-01-17 06:35] LABS: PLATELET COUNT 67 10x3/uL (130-400)
[2018-01-17 06:36] LABS: ALBUMIN 1.8 g/dL (3.4-5.0); ANION GAP 16.3 mmol/L (8-16); BILIRUBIN - TOTAL 2.2 mg/dL (0.2-1.3); CALCIUM 8.7 mg/dL (8.5-10.1); CARBON DIOXIDE 18.4 mmol/L (21.0-32.0); PHOSPHOROUS 4.2 mg/dL (2.5-4.9); POTASSIUM - SERUM 5.7 mmol/L (3.5-5.1); PROTEIN - SERUM 5.1 g/dL (6.4-8.2)
[2018-01-17 08:27] VITALS: BP 116/60
[2018-01-17 19:00] VITALS: BP 109/60
[2018-01-18 06:41] VITALS: BP 119/73
[2018-01-18 06:46] LABS: ANION GAP 15.6 mmol/L (8-16); CALCIUM 8.1 mg/dL (8.5-10.1); CARBON DIOXIDE 19.8 mmol/L (21.0-32.0); PHOSPHOROUS 4.3 mg/dL (2.5-4.9); POTASSIUM - SERUM 5.4 mmol/L (3.5-5.1)
[2018-01-18 06:55] LABS: INR 4.33 (0.85-1.17); PROTIME 40.6 SECONDS (11.6-15.0)
[2018-01-18 19:26] VITALS: BP 108/73
[2018-01-19 04:49] LABS: INR 4.89 (0.85-1.17); PROTIME 44.6 SECONDS (11.6-15.0)
[2018-01-19 04:50] LABS: ANION GAP 10.5 mmol/L (8-16); CALCIUM 7.7 mg/dL (8.5-10.1); CARBON DIOXIDE 23.6 mmol/L (21.0-32.0); CREATININE - SERUM 3.7 mg/dL (0.6-1.3); PHOSPHOROUS 4.4 mg/dL (2.5-4.9); POTASSIUM - SERUM 5.1 mmol/L (3.5-5.1)
[2018-01-19 08:00] VITALS: BP 107/66
[2018-01-19 19:33] VITALS: BP 104/53
[2018-01-20 06:54] LABS: BASOPHILS 0.2 % (0-2); EOSINOPHILS 1.5 % (0-7); HEMATOCRIT 28.1 % (42.0-54.0); HEMOGLOBIN 9.6 g/dL (13.5-17.5); IMMATURE GRANULOCYTES 0.8 % (0-5); LYMPHOCYTES 13.2 % (15-50); MCH 35.4 pg (26.0-34.0); MCHC 34.2 g/dL (31.0-37.0); MCV 103.7 fL (80.0-100.0); MEAN PLATELET VOLUME 11.6 fL (7.4-10.4); MONOCYTES 6.4 % (2-11); NEUTROPHILS 77.9 % (40-80); PLATELET COUNT 61 10x3/uL (130-400); RBC 2.71 10x6/uL (4.20-6.10); RDW 16.4 % (11.5-14.5); WBC 6.1 10x3/uL (4.8-10.8)
[2018-01-20 07:11] LABS: INR 4.22 (0.85-1.17); PROTIME 39.8 SECONDS (11.6-15.0)
[2018-01-20 07:15] LABS: ALBUMIN 1.5 g/dL (3.4-5.0); ANION GAP 12.4 mmol/L (8-16); BILIRUBIN - TOTAL 1.78 mg/dL (0.2-1.3); CALCIUM 7.4 mg/dL (8.5-10.1); CARBON DIOXIDE 28.3 mmol/L (21.0-32.0); CREATININE - SERUM 3.6 mg/dL (0.6-1.3); PHOSPHOROUS 4.3 mg/dL (2.5-4.9); POTASSIUM - SERUM 4.7 mmol/L (3.5-5.1); PROTEIN - SERUM 4.6 g/dL (6.4-8.2)
[2018-01-20 08:00] VITALS: BP 105/58
[2018-01-21 06:52] LABS: INR 2.87 (0.85-1.17); PROTIME 29.4 SECONDS (11.6-15.0)
[2018-01-21 07:08] LABS: ANION GAP 10.6 mmol/L (8-16); CALCIUM 7.4 mg/dL (8.5-10.1); CARBON DIOXIDE 31.1 mmol/L (21.0-32.0); CREATININE - SERUM 3.8 mg/dL (0.6-1.3); PHOSPHOROUS 4.4 mg/dL (2.5-4.9); POTASSIUM - SERUM 4.7 mmol/L (3.5-5.1)
[2018-01-21 08:00] VITALS: BP 100/56
[2018-01-21 18:00] VITALS: BP 100/62
[2018-01-22 01:34] VITALS: BP 102/58
[2018-01-22 07:10] LABS: BASOPHILS 0 % (0-2); HEMATOCRIT 29.8 % (42.0-54.0); HEMOGLOBIN 9.9 g/dL (13.5-17.5); IMMATURE GRANULOCYTES 0.5 % (0-5); LYMPHOCYTES 11.7 % (15-50); MCH 35.2 pg (26.0-34.0); MCHC 33.2 g/dL (31.0-37.0); MEAN PLATELET VOLUME 11.6 fL (7.4-10.4); MONOCYTES 6.4 % (2-11); NEUTROPHILS 80.4 % (40-80); PLATELET COUNT 68 10x3/uL (130-400); RBC 2.81 10x6/uL (4.20-6.10); RDW 16.6 % (11.5-14.5); WBC 9.4 10x3/uL (4.8-10.8)
[2018-01-22 07:33] LABS: ANION GAP 10.1 mmol/L (8-16); CALCIUM 7.8 mg/dL (8.5-10.1); CARBON DIOXIDE 32.3 mmol/L (21.0-32.0); CREATININE - SERUM 4.2 mg/dL (0.6-1.3); POTASSIUM - SERUM 4.4 mmol/L (3.5-5.1)
[2018-01-22 08:00] VITALS: BP 99/63
[2018-01-22 12:03] LABS: INR 2.12 (0.85-1.17); PROTIME 23.1 SECONDS (11.6-15.0)
[2018-01-22 19:00] VITALS: BP 97/55
[2018-01-23 00:05] VITALS: BP 109/61
[2018-01-23 06:35] LABS: INR 1.79 (0.85-1.17); PROTIME 20.2 SECONDS (11.6-15.0)
[2018-01-23 08:00] VITALS: BP 109/64
[2018-01-23 19:00] VITALS: BP 98/59
[2018-01-24 06:32] LABS: BASOPHILS 0.1 % (0-2); EOSINOPHILS 1.2 % (0-7); HEMATOCRIT 30.9 % (42.0-54.0); HEMOGLOBIN 10.4 g/dL (13.5-17.5); IMMATURE GRANULOCYTES 0.4 % (0-5); LYMPHOCYTES 9.5 % (15-50); MCH 35.4 pg (26.0-34.0); MCHC 33.7 g/dL (31.0-37.0); MCV 105.1 fL (80.0-100.0); MEAN PLATELET VOLUME 12.2 fL (7.4-10.4); MONOCYTES 8.5 % (2-11); NEUTROPHILS 80.3 % (40-80); RBC 2.94 10x6/uL (4.20-6.10); RDW 16.5 % (11.5-14.5); WBC 11.2 10x3/uL (4.8-10.8)
[2018-01-24 06:33] LABS: PLATELET COUNT 87 10x3/uL (130-400)
[2018-01-24 06:38] LABS: INR 1.56 (0.85-1.17); PROTIME 18.2 SECONDS (11.6-15.0)
[2018-01-24 06:56] LABS: ALBUMIN 1.7 g/dL (3.4-5.0); ANION GAP 14.1 mmol/L (8-16); BILIRUBIN - TOTAL 1.8 mg/dL (0.2-1.3); CALCIUM 7.7 mg/dL (8.5-10.1); CARBON DIOXIDE 29.1 mmol/L (21.0-32.0); CREATININE - SERUM 4.7 mg/dL (0.6-1.3); POTASSIUM - SERUM 4.2 mmol/L (3.5-5.1); PROTEIN - SERUM 4.9 g/dL (6.4-8.2)
[2018-01-24 08:00] VITALS: BP 113/69
[2018-01-24 19:00] VITALS: BP 101/57
[2018-01-25 05:16] LABS: BASOPHILS 0.1 % (0-2); EOSINOPHILS 1.1 % (0-7); HEMATOCRIT 31.2 % (42.0-54.0); HEMOGLOBIN 10.5 g/dL (13.5-17.5); IMMATURE GRANULOCYTES 0.5 % (0-5); LYMPHOCYTES 8.6 % (15-50); MCH 35.6 pg (26.0-34.0); MCHC 33.7 g/dL (31.0-37.0); MCV 105.8 fL (80.0-100.0); MEAN PLATELET VOLUME 12.2 fL (7.4-10.4); MONOCYTES 10.1 % (2-11); NEUTROPHILS 79.6 % (40-80); PLATELET COUNT 89 10x3/uL (130-400); RBC 2.95 10x6/uL (4.20-6.10); RDW 16.4 % (11.5-14.5); WBC 12.6 10x3/uL (4.8-10.8)
[2018-01-25 05:33] LABS: ANION GAP 12.8 mmol/L (8-16); CALCIUM 8.2 mg/dL (8.5-10.1); CARBON DIOXIDE 31.4 mmol/L (21.0-32.0); PHOSPHOROUS 3.5 mg/dL (2.5-4.9); POTASSIUM - SERUM 4.2 mmol/L (3.5-5.1)
[2018-01-25 05:36] LABS: INR 1.36 (0.85-1.17); PROTIME 16.3 SECONDS (11.6-15.0)
[2018-01-25 10:26] VITALS: BP 109/88
[2018-01-25 15:19] LABS: APPEARANCE CLEAR (CLEAR); BILIRUBIN NEGATIVE (NEGATIVE); COLOR YELLOW (YELLOW); GLUCOSE NEGATIVE (NEGATIVE); KETONE NEGATIVE (NEGATIVE); NITRITE NEGATIVE (NEGATIVE); PROTEIN 1+ mg/dL (NEGATIVE); SPECIFIC GRAVITY 1.005 (1.005-1.020); UROBILINOGEN NORMAL (NORMAL)
[2018-01-25 15:21] LABS: BACTERIA FEW /hpf (NONE SEEN); RED CELLS - URINE 0-5 /hpf (0-5); YEAST <1+ /hpf (NONE SEEN)
[2018-01-25 23:25] VITALS: BP 120/68
[2018-01-26 07:45] LABS: BASOPHILS 0.1 % (0-2); EOSINOPHILS 0.5 % (0-7); HEMATOCRIT 31.9 % (42.0-54.0); HEMOGLOBIN 10.6 g/dL (13.5-17.5); IMMATURE GRANULOCYTES 0.7 % (0-5); LYMPHOCYTES 13.9 % (15-50); MCH 35.2 pg (26.0-34.0); MCHC 33.2 g/dL (31.0-37.0); MEAN PLATELET VOLUME 12.5 fL (7.4-10.4); MONOCYTES 10.9 % (2-11); NEUTROPHILS 73.9 % (40-80); RBC 3.01 10x6/uL (4.20-6.10); RDW 16.6 % (11.5-14.5)
[2018-01-26 07:46] LABS: PLATELET COUNT 112 10x3/uL (130-400); WBC 17.5 10x3/uL (4.8-10.8)
[2018-01-26 07:53] LABS: INR 1.37 (0.85-1.17); PROTIME 16.4 SECONDS (11.6-15.0)
[2018-01-26 07:57] LABS: ANION GAP 20.7 mmol/L (8-16); CALCIUM 8.2 mg/dL (8.5-10.1); CREATININE - SERUM 5.4 mg/dL (0.6-1.3); PHOSPHOROUS 4.3 mg/dL (2.5-4.9); POTASSIUM - SERUM 4.6 mmol/L (3.5-5.1)
[2018-01-26 07:58] LABS: CARBON DIOXIDE 22.9 mmol/L (21.0-32.0)
[2018-01-26 10:19] VITALS: BP 87/65
== END 2018-01-26 18:37 | disposition hospice, inpatient (51) | DRG 442 ==
LOC: D.REHAB 16:09
PROVIDERS: Emergency Medicine; Internal Medicine; Internal Medicine Gastroenterology; Internal Medicine Nephrology
DX: K72.90 Hepatic failure, unspecified without coma (principal); N17.9 Acute kidney failure, unspecified; R18.8 Other ascites; E87.2 Acidosis; N18.4 Chronic kidney disease, stage 4 (severe); L40.9 Psoriasis, unspecified; D50.9 Iron deficiency anemia, unspecified; D69.6 Thrombocytopenia, unspecified; I10 Essential (primary) hypertension; R53.83 Other fatigue; R53.1 Weakness; Z66 Do not resuscitate; E87.5 Hyperkalemia; I12.9 Hypertensive chronic kidney disease with stage 1 through stage 4 chronic kidney disease, or unspecified chronic kidney disease; K74.60 Unspecified cirrhosis of liver

== ENCOUNTER 2018-01-26 17:25 | Inpatient (IN) | payer OTHER ==
[~2018-01-26] VITALS: Ht 175.3 cm; Wt 74.1 kg
[2018-01-27 02:07] VITALS: BP 73/43; BMI 24.1
[2018-01-27 12:28] VITALS: BP 95/54
[2018-01-27 20:00] VITALS: BP 88/59
[2018-01-28 08:00] VITALS: BP 95/55
[2018-01-28 20:00] VITALS: BP 88/54
[2018-01-29 08:32] VITALS: BP 53/32
[2018-01-29 19:55] VITALS: BP 80/55
[2018-01-30 08:16] VITALS: BP 59/40
[2018-01-30 20:10] VITALS: BP 64/29
[2018-01-31 08:07] VITALS: BP 68/36
[2018-01-31 21:24] VITALS: BP 70/32
[2018-02-01 08:25] VITALS: BP 72/41
[2018-04-14 14:15] VITALS: Ht 175.3 cm; Wt 74.1 kg
== END 2018-02-01 16:53 | DRG 951 ==
LOC: D.M2 17:25
DX: Z51.5 Encounter for palliative care (principal)